=== PATIENT | female | born 1960 ===

== ENCOUNTER 2023-07-10 13:59 | Emergency (ER) | payer BC, SELFPAY ==
[2023-07-10] VITALS (7 sets, daily range): BP systolic 95–152; BP diastolic 61–93; BMI 23.6
[2023-07-10 14:25] LABS: % Basophils 0.3 % (0-2); % Eosinophils 0.1 % (0-6); % Immature Granulocytes 0.4 % (0-0.5); % Lymphocytes 16.6 % (20.5-51.1); % Monocytes 12.5 % (1.7-9.3); % Neutrophils 70.1 % (42.2-75.2); Absolute Lymphocytes 1.3 10^3/uL (1.2-3.4); Absolute Neutrophils 5.4 10^3/uL (1.4-6.5); Hematocrit 45.7 % (37.0-47.0); Hemoglobin 16.5 g/dL (12.0-16.0); Mean Corp Hgb Conc. 36.1 g/dL (33.0-37.0); Mean Corpuscular Hgb 32.6 pg (27.0-31.0); Mean Corpuscular Volume 90.3 fL (81.0-99.0); Mean Platelet Volume 9.3 fL (7.4-10.4); Nucleated Red Blood Cells % 0 %; Platelet Count 226 10^3/uL (130-400); Red Blood Cell Count 5.06 10^6/uL (4.20-5.40); Red Cell Dist. Width 11.9 % (11.5-14.5); White Blood Cell Count 7.7 10^3/uL (4.8-10.8)
[2023-07-10 14:50] LABS: ALT (SGPT) 21 U/L (0-35); AST (SGOT) 37 U/L (14-36); Albumin 4.6 g/dl (3.5-5.0); Alkaline Phosphatase 62 U/L (38-126); Blood Urea Nitrogen 9 mg/dl (7-17); Calcium 9.9 mg/dl (8.4-10.2); Carbon Dioxide 23 mmol/L (22-30); Chloride 101 mmol/L (98-107); Glucose 110 mg/dl (70-99); Lipase 126 U/L (23-300); Potassium 4.3 mmol/L (3.5-5.1); Sodium 133 mmol/L (135-145); Total Bilirubin 0.6 mg/dl (0.2-1.3); Total Protein 7.3 g/dl (6.3-8.2); eGFR > 60.00
[2023-07-10] MEDS: OMNIPAQUE 50 ML PO (17:26)
[2023-07-10] MEDS: PEPCID 20 MG IV (17:27)
[2023-07-10] MEDS: NSS 1000 IV (17:31)
--- NOTE | 2023-07-10 19:46 | ED.GENMED ---
History of Present Illness
General
Chief Complaint: Abdominal Pain
Source: patient
Exam Limitations: none
Time Seen by Provider: 07/10/23 16:44
Nursing documentation reviewed up to this point in time: agreed with
Travel History
Have you had any contact with someone who has COVID-19?: No
Do you have any symptoms of coronavirus? Fever > 100 degrees, chills, cough, shortness of breath, sore throat, loss of taste or smell, muscle aches, or headache?: No
History of Present Illness
History of Present Illness:
pt is a 63 y/o F with h/o intussusception s/p partial sb resection, abdominoplasty
here with upper abdominal pain radiating to the back
she says that she had diarrhea and fever starting on / night into 07/05. she had diarrhea most of the day and 1 episode vomiting; then fever broke and 3/ she had dry heaves and lack of appetite, some diarrhea but less than other days
she thought she was feeling better yesterday was able to eat a littl emore and tolerated it
but then started having more upper abd pain and now into her mid back both sides
pt is here requesting CT scan
she says she had norovirus (but was not tested, just presumed)
she denies h/o gastritis but has had GERD before and was on pantoprazole so she took a dose of that today which didn't really help
her pain isn't worse with eating
no fever, vomiting today, bloody or black stool, urinary syptoms
Past History
Past History
ED Past Medical History: Other (intussusception)
ED Past Surgical History: Gynecological and Other (tummy tuck; sbo resection)
Review of Systems
Review of Systems
Allergies reviewed?: Yes
All Other Systems: Not applicable
Phy Exam
Physical Exam
Physical Exam:
GENERAL: Alert , in no apparent distress, nontoxic appearing
EYE: pupils equal and reactive
NECK: Supple
ENT: o/p clr, mmm.
CARDIAC: Regular rate and rhythm .
LUNGS: Clear breath sounds bilaterally, no acute respiratory distress, no wheezes/rales/rhonchi
ABDOMEN: Soft, mild epigsatric tendrness, no r/g, no cvat, normal bowel sounds
NEUROLOGICAL: Alert and oriented, no focal neuro deficits
SKIN: Warm and dry, skin intact.
MUSCULOSKELETAL: No edema, well perfused.
PSYCH: Normal and appropriate interaction.
Course
Orders/Labs/Results
Orders:
Orders
07/10/23 14:20
Complete Blood Count/With Diff Urgent
Comprehensive Metabolic Panel Urgent
Lipase Urgent
07/10/23 17:13
CT Abd/pel W Iv And Oral Contr Urgent
Comment:
Reason For Exam: upper abd pain, bad diarrhea
0.9% Sodium Chloride 1000 ml [Nss] 1,000 ml IV BOLUS
Famotidine [Pepcid] 20 mg IV NOW STA
Iohexol [Omnipaque] See Protocol PO NOW STA
07/10/23 20:47
US Abdomen Limited Urgent
Reason For Exam: ct concerning for acalculus madhav
07/10/23 22:46
C DIFF [C difficile Antigen & Toxins] Urgent
DALI Source: Feces/Stool
Specimen Description:
Date Specimen was Collected: 07/10/23
Time Specimen was Collected: 22:39
Stool Culture Urgent
DALI Source: Feces/Stool
Specimen Description:
Date Specimen was Collected: 07/10/23
Time Specimen was Collected: 22:39
07/10/23 23:16
LevoFLOXacin [Levaquin] 500 mg PO NOW STA
Abnormal Lab Results
07/10/23
14:20
Hgb 16.5 H g/dL
(12.0-16.0)
MCH 32.6 H pg
(27.0-31.0)
Absolute Monos (auto) 1.0 H 10^3/uL
(0.1-0.6)
Lymphocytes % 16.6 L %
(20.5-51.1)
Monocytes % 12.5 H %
(1.7-9.3)
Sodium 133 L mmol/L
(135-145)
Glucose 110 H mg/dl
(70-99)
AST 37 H U/L
(14-36)
07/10/23 14:20
07/10/23 14:20
Vital Signs
Initial and Last Documented VS:
Initial Vital Signs
Temp Pulse Resp BP Pulse Ox
99.3 F 79 16 146/91 97
07/10/23 14:08 07/10/23 14:08 07/10/23 14:08 07/10/23 14:08 07/10/23 14:08
Last Documented Vital Signs
Temp Pulse Resp BP Pulse Ox
99.3 F 70 14 121/93 97
07/10/23 14:08 07/10/23 23:00 07/10/23 20:15 07/10/23 23:00 07/10/23 23:00
MDM/Problems Addressed
Differential Diagnosis Includes:
gastritis, colitis, cholecystitis
MDM/Problems Addressed:
63 y/o F with h/o intussuception and s/p partial sb resection
here with upper abd pain afte rhaving days of diarrhea, very rare vomiting, fever
fever resolved after 1 day
she thought diarrhea better yesterday but returned today and pt has pain in her upper abd an dback
she suspects she had norovirus
no h/o recent abx or hospitalizations
[place] for her daughters baby [place]
has h/o gerd and tried pantoprzaole today w
here mild epigasric discomfrot
no severe distress
ended up having 4-5 episodes of diarrhea while still here
sent stool studies
her CT showed some inflammatory changes duodenum, stomach an dnear gb
d/w dr. jerez and recommended US for further clarification of the gb wall
US did not show any abnormal thickeness of the wall
her gb is distended
and her cbd was slightly distended
i did review this read with gen surgery
he did say that it was unlikely acute madhav, and recomended [facility] consult
i offered this to patient who declined
her daughter's baby shower is tomorrow
she only mostly has diarrhea, nd some epgiastric pain
she would like some abx for diarrhea and already is on pantoprazole so recommend this daily
return precuations
brat diet
close f/u
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
*Critical Care Note
Total Time (30-74mins, 75-104mins- exclusive of procedures): Not Applicable
ED Attending Note
-
Portions of this chart may have been created with voice recognition software.� Occasional wrong word or��sound alike� substitutions may have occurred due to the inherent limitations of voice recognition software.
Discharge Plan
Departure
Patient Disposition: Home (Routine Discharge)
Date of Disposition: 07/10/23
Time of Disposition: 23:16
Patient with high blood pressure during this ER visit?: No
Condition: Fair
Covid-19: Not Applicable
Discharge Problem:
Diarrhea, Gastritis
Instructions: Gastritis (DC), Diarrhea, Adult ED
Prescriptions:
New
levofloxacin 500 mg tablet
500 mg PO DAILY Qty: 3 0RF
No Action
progesterone micronized 200 mg Capsule
200 mg PO DAILY
levothyroxine 50 mcg Capsule
50 mcg PO DAILY
Referrals:
UNKNOWN - PT DOES,NOT KNOW [Family Provider] -
Activity Restrictions/Additional Instructions:
YOUR BLOOD WORK WAS REASSURING
YOUR STOOL STUDIES ARE STILL PENDING
WE WILL CALL YOU IF YOU NEED DIFFERENT ANTIBIOTICS
YOU HAD SOME INFLAMMATION OF YOUR STOMACH AND YOUR DUODENUM ON CAT SCAN
YOUR ULTASOUND SHOWED SOME DISTENSION OF YOUR GALLBLADDER BUT NO OBVIOUS STONES OR OBVIOUS INFECTION
IT IS IMPORTANT THAT YOU SHOW THESE FINDINGS TO YOUR GI DOCTOR
YOU ALSO HAD AN INCIDENTAL SPOT ON YOUR PANCREAS THAT YOU SHOUL HAVE EVALUATED.
FOR YOUR DIARRHEA, TRY BANANAS, RICE APPLESAUCE TOAST
DRINK FLUIDS
TAKE LEVAQUIN ONCE A DAY FOR 3 DAYS STARTING TOMROROW.
RETURN FOR: WORSENING PAIN, FEVER, VOMITING, PERSISTENT DIARRHEA, DEHYDRATION OR ANY CONCERNS.
Interventions
Interventions:
*Risk Screen - Suicide Last Done: 07/10/23 18:15
*General Assessment Last Done: 07/10/23 18:15
*Neglect/Abuse Screening Last Done: 07/10/23 18:15
ED- Fall Risk Assessment Last Done: 07/10/23 18:15
*ED COVID-19 Vaccine History Last Done: 07/10/23 18:15
*Nursing Disposition Last Done: 07/10/23 23:35
WZ-Mpeiin-Axycqxmjnb Assessment Last Done: 07/10/23 19:28
Discharge Date and Time
Discharge Date/Time: 07/10/23 23:35
[2023-07-10] MEDS: LEVAQUIN 500 MG PO (23:27)
== END 2023-07-10 23:35 | disposition home or self-care (01) ==
LOC: EMR 13:59
PROVIDERS: Emergency Medicine; EMERGENCY PHYSICIAN Emergency Medicine
DX: R19.7 Diarrhea, unspecified (principal); K29.70 Gastritis, unspecified, without bleeding
CPT/HCPCS: 99284; 96374; 96360; 74177; 76705; 80053; 83690; 85025; 87045; 87046; 87324; 87427; 87449; Q9967